=== PATIENT | female | born 1970 | race Caucasian/White ===

== ENCOUNTER → 2017-02-15 | Outpatient (CLI) | payer BC ==
--- NOTE | 2017-02-15 18:16 | Diagnostic Imaging Report ---
INDICATION: Burning epigastric pain. TECHNIQUE: Multiple real-time beltran scale sonographic images of the abdomen. CORRELATION STUDY: None. FINDINGS: LIVER: Normal echotexture within the visualized portions of the liver. Liver at approximately 14 cm in length. GALLBLADDER: Borderline gallbladder wall thickening at 3 mm but also appears to be somewhat contracted. No definitive shadowing gallstones or suggestion of sludge. COMMON BILE DUCT: Nondilated at 4 mm. PANCREAS: Limited in visualization. The visualized portions appearing unremarkable. SPLEEN: Unremarkable. ABDOMINAL AORTA: Obscured by overlying bowel gas. INFERIOR VENA CAVA: Obscured by overlying bowel gas. RIGHT KIDNEY: 9.7 cm. Unremarkable. LEFT KIDNEY: Approximately 7.5 cm. Left kidney is largely obscured by overlying bowel gas. ASCITES: None. IMPRESSION: Somewhat limited abdominal ultrasound imaging demonstrates no suggestion for acute abnormality. Dictated by: Dictated on workstation # [id number]
== END ==
LOC: RAD 16:38
PROVIDERS: ATTEND Family Medicine
DX: R10.11 Right upper quadrant pain (principal); R10.13 Epigastric pain
CPT/HCPCS: 76700

== ENCOUNTER → 2017-03-02 | Outpatient (CLI) | payer BC ==
[~2017-03-02] MED LIST: CATHETER FLUSH 10 ML SYR IV PRN
--- NOTE | 2017-03-02 13:30 | Diagnostic Imaging Report ---
INDICATION: Right upper quadrant pain. RADIOPHARMACEUTICAL: 5 mCi of technetium 99M Choletec was given. FINDINGS: There is prompt uptake in the liver. Isotope transits through the common bile duct and cystic duct with good visualization of the gallbladder. Stimulation was performed utilizing oral ingestion of an Ensure fatty meal. Serial images show the ejection fraction to be 35% at 60 minutes. IMPRESSION: 1. Patent common and cystic bile ducts. 2. The ejection fraction is 35%. Dictated by: Dictated on workstation # [id number]
== END ==
LOC: CARD 09:59
PROVIDERS: ATTEND Nurse Practitioner Family
DX: K82.8 Other specified diseases of gallbladder (principal)
CPT/HCPCS: 78227

== ENCOUNTER → 2019-03-07 | Outpatient (CLI) | payer BC ==
--- NOTE | 2019-03-07 11:50 | Diagnostic Imaging Report ---
PROCEDURE: US Non-ob pelvis comp/trans. TECHNIQUE: Multiple realtime grayscale images were obtained of the pelvis in various projections endovaginally. Transabdominal imaging was also performed. INDICATION: Abnormal uterine bleeding. FINDINGS: The uterus measures 8.1 x 6.0 x 4.6 cm. Endometrium measures approximately 10 mm in thickness. No myometrial mass is identified. There are multiple nabothian cysts, largest 11 mm in size. The right ovary measures 3.7 x 2.2 x 1.9 cm and the left ovary measures 3.6 x 2.6 x 2.5 cm. Left ovary does contain an approximately 2.2 cm cyst. There is blood flow to the ovaries. No adnexal mass or free fluid is seen. IMPRESSION: 2.2 cm left ovarian cyst. The study is otherwise unremarkable. Dictated by: Dictated on workstation # [id number]
--- NOTE | 2019-03-12 15:55 | Diagnostic Imaging Report ---
INDICATION: Routine screening. COMPARISON: 04/28/2016 and 06/18/2014. TECHNIQUE: 2D and 3D bilateral screening mammography was performed with CAD. FINDINGS: Both breasts are heterogeneously dense, limiting the sensitivity of mammography. A circumscribed nodule in the lower slightly outer left breast at posterior depth is noted, consistent with benign etiology. No spiculated masses or malignant appearing microcalcifications are seen. The axillae are unremarkable. IMPRESSION: No mammographic features suspicious for malignancy are identified. ACR BI-RADS Category 2: Benign findings. Result letter will be mailed to the patient. Note: At least 10% of breast cancer is not imaged by mammography. Dictated by: Dictated on workstation # [id number]
== END ==
LOC: RAD 10:08
PROVIDERS: ATTEND Obstetrics & Gynecology
DX: Z12.31 Encounter for screening mammogram for malignant neoplasm of breast (principal); N93.9 Abnormal uterine and vaginal bleeding, unspecified; N83.202 Unspecified ovarian cyst, left side
CPT/HCPCS: 76830; 76856; 77067

== ENCOUNTER → 2020-10-22 | Outpatient (CLI) | payer BC ==
--- NOTE | 2020-10-25 09:22 | Diagnostic Imaging Report ---
INDICATION: Routine screening. COMPARISON: 03/07/2019 and 04/28/2016. TECHNIQUE: 2D and 3D bilateral screening mammography was performed with CAD. FINDINGS: Both breasts are heterogeneously dense, limiting the sensitivity of mammography. No spiculated mass or malignant appearing microcalcifications are seen. The axillae are unremarkable. IMPRESSION: No mammographic features suspicious for malignancy are identified. ACR BI-RADS Category 2: Benign findings. Result letter will be mailed to the patient. Note: At least 10% of breast cancer is not imaged by mammography. Dictated by: Dictated on workstation # [id number]
== END ==
LOC: RAD 11:30
PROVIDERS: ATTEND Obstetrics & Gynecology
DX: Z12.31 Encounter for screening mammogram for malignant neoplasm of breast (principal)
CPT/HCPCS: 77063; 77067

== ENCOUNTER → 2021-12-30 | Outpatient (CLI) | payer BC ==
--- NOTE | 2021-12-30 11:10 | Diagnostic Imaging Report ---
INDICATION: Routine screening. Comparison is made with prior mammograms from 10/22/2020 and 03/07/2019. 2-D and 3-D bilateral screening mammography was performed with CAD. Both breasts are heterogeneously dense, limiting the sensitivity of mammography. The parenchymal pattern is stable. No mass or malignant-appearing microcalcifications are seen. Axillae are unremarkable. IMPRESSION: BI-RADS Category 1 No mammographic features suspicious for malignancy are identified. ACR BI-RADS Category 1: Negative. Result letter will be mailed to the patient. Note: At least 10% of breast cancer is not imaged by mammography. Dictated by: Dictated on workstation # [id number]
== END ==
LOC: RAD 09:45
PROVIDERS: ATTEND Obstetrics & Gynecology
DX: Z12.31 Encounter for screening mammogram for malignant neoplasm of breast (principal)
CPT/HCPCS: 77063; 77067